=== PATIENT | male | born 1985 | race Caucasian/White ===

== ENCOUNTER 2019-09-17 16:42 | Emergency (ER) | payer BC ==
[~2019-09-17] VITALS: Ht 182.9 cm; Wt 77.3 kg
[~2019-09-17 16:42] MED LIST: ALPR-624 PO
[2019-09-17 17:03] VITALS: BP 138/91
[2019-09-17] MEDS ORDERED: DICL100G15 TOP (18:43)
[2019-09-17] MEDS ORDERED: IBUP-1985 PO (18:43)
== END 2019-09-17 18:49 | disposition home or self-care (01) ==
LOC: ER 16:44
DX: M25.521 Pain in right elbow (principal); Z79.899 Other long term (current) drug therapy
CPT/HCPCS: 73080; 99283

== ENCOUNTER 2020-06-06 15:42 | Emergency (ER) | payer BC, OTHER ==
[~2020-06-06] VITALS: Ht 182.9 cm; Wt 75.0 kg
[~2020-06-06 15:42] MED LIST changes: +DICL100G15 TOP; +IBUP-1985 PO
[2020-06-06 16:07] VITALS: BP 124/70
[2020-06-06] MEDS ORDERED: PRED20TA PO (17:47)
[2020-06-06] MEDS ORDERED: DIAZ5TAB PO (17:47)
[2020-06-06] MEDS ORDERED: predniSONE 20 mg tablet PO ONE (17:50)
== END 2020-06-06 19:21 | disposition home or self-care (01) ==
LOC: ER 15:43
DX: S16.1XXA Strain of muscle, fascia and tendon at neck level, initial encounter (principal); S46.911A Strain of unspecified muscle, fascia and tendon at shoulder and upper arm level, right arm, initial encounter; Z87.891 Personal history of nicotine dependence; Z88.0 Allergy status to penicillin; Z79.899 Other long term (current) drug therapy; V87.7XXA Person injured in collision between other specified motor vehicles (traffic), initial encounter; Y93.89 Activity, other specified; Y92.89 Other specified places as the place of occurrence of the external cause; Y99.8 Other external cause status
CPT/HCPCS: 72040; 73030; 99284; J7512

== ENCOUNTER 2022-02-06 08:40 | Emergency (ER) | payer MEDICAID, OTHER ==
[~2022-02-06] VITALS: Ht 182.9 cm; Wt 77.3 kg
[~2022-02-06 08:40] MED LIST changes: +DIAZ5TAB PO
[2022-02-06 08:45] VITALS: BP 122/71
[2022-02-06] MEDS ORDERED: SULF1TAB45 PO (09:58)
[2022-02-06] MEDS ORDERED: CEPH-585 PO (09:58)
[2022-02-06] MEDS ORDERED: ketorolac trometh inj. 60 MG/2 ML VIAL IM ONE (10:00)
[2022-02-06] MEDS ORDERED: cephalexin 500mg capsule PO ONE (10:00)
[2022-02-06] MEDS ORDERED: sulfamethoxazole/trimethoprim DS (800/160mg) tablet PO ONE (10:00)
--- NOTE | 2022-02-06 10:45 | NUR ---
Patient seen and assessed by provider.
== END 2022-02-06 10:54 | disposition home or self-care (01) ==
LOC: ER 08:40
DX: L03.116 Cellulitis of left lower limb (principal); Z88.0 Allergy status to penicillin; Z79.899 Other long term (current) drug therapy; Z79.1 Long term (current) use of non-steroidal anti-inflammatories (NSAID)
CPT/HCPCS: 96372; 99283; J1885